=== PATIENT | female | born 1985 | race Two or more races ===

== ENCOUNTER 2024-11-04 14:44 | Emergency (ER) | payer OTHER, SELFPAY ==
[2024-11-04 14:45] VITALS: BMI 25.6
[2024-11-04 15:12] VITALS: BP 137/85; PULSE 80; RESP 18; TEMP 37.1; O2SAT 99
--- NOTE | 2024-11-04 15:50 | EDNOTE_ITS ---
<Statement entered by Juana Leung MD - 11/05/24 14:27> As co-signing physician, I was present and available for consult prn. I concur with the plan and care as documented by the midlevel provider. ED Skin Abcess FB-RME/HPI General Chief complaint: Burn/Smoke Inhalation Stated complaint: BURN TO THE LEFT FOREARM Time Seen by Provider: 11/04/24 14:59 Arrival date/time: 11/04/24 14:44 38-year-old female with no significant medical problems presents the emergency room today stating she accidentally burned herself while at work today with hot water. Patient works for the [employer]. Limitations: no limitations Related Data Previous Rx's ?Medication ?Instructions ?Recorded bacitracin 500 unit/gram topical 1 applic topical TID 7 days #28.4 11/04/24 ointment grams cephalexin 500 mg capsule 500 mg PO BID 7 days #14 cap s 11/04/24 ibuprofen 600 mg tablet 600 mg PO Q6H #30 tabs 11/04 Allergies Allergy/AdvReac Type Severity Reaction Status Date / Time No Known Allergies Allergy Verified 11/04/24 14:50 Review of Systems Review of Systems Systems Reviewed: All systems reviewed, normal except as documented Constitutional Constitutional: Reports system reviewed and no additional complaints, except as documented, Denies fever(s) and Denies headache(s) Eyes Eyes: Reports system reviewed and no additional complaints, except as documented and Denies blurry vision ENT Ears, Nose, Mouth, and Throat: Reports system reviewed and no additional complaints, except as documented, Denies headache(s), Denies nasal congestion and Denies nasal discharge Cardiovascular Cardiovascular: Reports system reviewed and no additional complaints, except as documented, Denies chest pain and Denies dyspnea Respiratory Respiratory: Reports system reviewed and no additional complaints, except as documented, Denies chest congestion, Denies cough and Denies dyspnea Gastrointestinal Gastrointestinal: Reports system reviewed and no additional complaints, except as documented and Denies abdominal pain Integumentary/Breasts Skin/Breast: Reports system reviewed and no additional complaints, except as documented, Denies rash and Reports other (Burn left arm) Neurologic Neurologic: Reports system reviewed and no additional complaints, except as documented, Reports as per HPI and Denies headache(s) Past Medical History Social History SMOKING STATUS: Never smoker ED Exam General Limitations: Present no limitations General appearance: Present alert and in no apparent distress Head Head exam: Present atraumatic Eye Eye exam: Present normal appearance, PERRL and EOMI ENT ENT exam: Present normal exam, normal oropharynx and mucous membranes moist Neck Neck exam: Present normal inspection, full ROM and trachea midline Chest Chest inspection: Present normal inspection and symmetric chest wall rise Respiratory Respiratory exam: Present normal lung sounds bilaterally Cardiovascular Cardiovascular exam: Present regular rate, normal rhythm and normal heart sounds Abdominal Exam Abdominal exam: Present soft and normal bowel sounds Extremities Exam Extremities exam: Present normal inspection and full ROM Back Exam Back exam: Present normal inspection and full ROM Neurological Exam Neurological exam: Present alert, oriented X3, CN II-XII intact, normal gait and reflexes normal; Absent motor sensory deficit Psychiatric Psychiatric exam: Present normal affect and normal mood Skin Skin exam: Present warm, dry and other (Burn first second-degree left arm) Course Quality Measures none Orders Category Date Time Status Wound Care NOW Care 11/04/24 15:15 Active Bacitracin Oint pkt Med 11/04/24 15:15 Discontinued 1 gm TOP X1 ONE Ketorolac Inj [Toradol Inj] Med 11/04/24 15:14 Discontinued 30 mg IM X1 ONE TET,DIP/PERT AC (Adult)-Tdap [Boostrix Adult (Tdap) Med 11/04/24 15:14 Discontinued Vacc] 0.5 ml IMI .ONCE ONE Vital Signs Vital signs: Vital Signs Temperature 98.7 F 11/04/24 15:12 Pulse Rate 80 11/04/24 15:12 Respiratory Rate 18 11/04/24 15:12 Blood Pressure 137/85 H 11/04/24 15:12 Pulse Oximetry (%) 99 11/04/24 15:12 Oxygen Delivery Method Room Air 11/04/24 15:12 O2 saturation 99% on room air within normal limits Skin / Abscess / Foreign Body MDM Narrative MDM Narrative:: 38-year-old female with no significant medical problems presents the emergency room today stating she accidentally burned herself while at work today with hot water. Patient works for the [employer]. On exam patient has for second-degree tran to the left forearm the burn is not circumferential Part of the burn is deroofed Dressings applied with bacitracin Xeroform patient given pain medication Tdap updated Patient instructed to follow-up with his Workmen's Compensation doctor as soon as possible for worsening symptoms return immediately Patient data External records reviewed:: [facility] previous records Clinical information provided by:: patient Social determinants that could affect healthcare access:: none Patient has the following chronic illnesses:: None How is presenting disease/condition affected by chronic disease/condition?: no chronic disease Evaluation data The following diagnostics were reviewed and interpreted by me:: other (specify) Lab and/or radiology exams considered but not ordered:: Consider not ordered Interpretation Summary: N/A Medications / Prescriptions Medications or Prescriptions considered but not ordered:: Given Medication administrations:: Medication Administration History Discontinued Medications Bacitracin (Bacitracin Oint 1 Gm Packet) 1 gm TOP X1 ONE Stop: 11/04/24 15:16 Last Admin: 11/04/24 16:16 Dose: 1 gm Documented By: Diphtheria/Tetanus/Acell Pertussis (Diphth,Pertuss(Acell),Tet Vac 0.5 Ml Syr- Adult) 0.5 ml IMi .ONCE ONE Stop: 11/04/24 15:15 Last Admin: 11/04/24 16:13 Dose: 0.5 ml Documented By: Ketorolac Tromethamine (Ketorolac Inj 30 Mg/Ml Vial) 30 mg IM X1 ONE Stop: 11/04/24 15:15 Last Admin: 11/04/24 16:13 Dose: 30 mg Documented By: Given Consultations Consultation(s) initiated? (list below): No Diagnosis Skin/Abscess Differential Diagnosis: abscess of skin or subcutaneous tissue and other (First-degree burn, second-degree burn, third-degree burn) Most likely diagnosis given after review of the tests above:: Burn Admission Indicated Admission indicated?: not indicated Admission Request Was there a request for admission?: No Disposition Plan Disposition Plan: Discharge Discharge Attestation Discharge Attestation: The patient and all family members were given an opportunity to ask questions and understood the discharge instructions. Discharge instructions specifically effects, indications for sooner follow up or return to the emergency department, and the expected course of current diagnosis. Patient condition: Stable Discharge Plan Plan Patient Disposition: HOME (Self Care) Disposition Comment: Stable Prescriptions/Referrals Prescriptions/Med Rec: New bacitracin 500 unit/gram ointment 1 applic topical TID 7 Days Qty: 28.4 0RF cephalexin 500 mg capsule 500 mg PO BID 7 Days Qty: 14 0RF ibuprofen 600 mg tablet 600 mg PO Q6H Qty: 30 0RF Problem List Clinical Impression: Burn of left arm Patient/Caregiver Discharge Instructions Education Materials: ED Burn, Hot Water Additional Instructions: Please follow-up with Workmen's Compensation doctor as soon as possible for worsening symptoms or concerns return immediately Print Language: Tristanian Stand Alone Forms: Karen Award Info., Patient Portal Info Letter Vaccines Vaccines Given During Stay: TDaP PA/BEHAVIOR THERAPIST Supervising Physician PA/BEHAVIOR THERAPIST Supervising Physician: Dr. leung
[2024-11-04] MEDS: KETOROLAC INJ 30 MG/ML VIAL IM (16:13)
[2024-11-04] MEDS: DIPHTH,PERTUSS(ACELL),TET VAC 0.5 ML SYR- ADULT IMi (16:13)
[2024-11-04] MEDS: BACITRACIN OINT 1 GM PACKET TOP (16:16)
== END 2024-11-04 17:23 | disposition home or self-care (01) ==
PROVIDERS: Emergency Provider Emergency Medicine
DX: T22.20XA Burn of second degree of shoulder and upper limb, except wrist and hand, unspecified site, initial encounter (principal); Z23 Encounter for immunization
CPT/HCPCS: 90471; 90715; 96372; 99283; J1885; A9270